=== PATIENT | male | born 1955 | race Caucasian/White ===

== ENCOUNTER 2020-01-09 12:51 | Emergency (ER) | payer MEDICARE, SELFPAY ==
[~2020-01-09] VITALS: Ht 170.2 cm; Wt 90.7 kg
--- NOTE | 2020-01-09 13:05 | NUR ---
Patient BIB [id number] for [facility] from home. Patient Alert but not verbal and cannot follow commands. Patient is able to open eyes spontaneously. Respiratory even and unlabored, no cough or sob noted. Patient's abdominal girth enlarged, and purple discolored skin noted on lower abdomen and on scrotom area. Patient connected to the monitor, patient in bed at lowest position, sr [id number]. Fall and safety precautions implemented per protocol.
--- NOTE | 2020-01-09 13:10 | NUR ---
Patient is able to move all extremities.
--- NOTE | 2020-01-09 13:10 | NUR ---
Patient GCS is 12 upon assessment.
--- NOTE | 2020-01-09 13:14 | NUR ---
Patient transported to CT in stable condition.
--- NOTE | 2020-01-09 13:27 | NUR ---
Patient is back from CT in stable condition.
[2020-01-09 13:29] LABS: BASOPHILS # (AUTO) 0.1 K/uL (0.0-8.0); BASOPHILS % (AUTO) 0.5 % (0.0-2.0); EOSINOPHILS # (AUTO) 0.1 K/uL (0.0-0.7); EOSINOPHILS % (AUTO) 0.7 % (0.0-7.0); LYMPHOCYTES # (AUTO) 0.6 K/uL (20.0-40.0); LYMPHOCYTES % (AUTO) 5.1 % (20.5-51.5); MEAN CORPUSCULAR HEMOGLOBIN 36.7 uug (23.8-33.4); MEAN CORPUSCULAR HGB CONC 33 g/dL (32.5-36.3); MEAN CORPUSCULAR VOLUME 110.4 fL (73.0-96.2); MONOCYTES # (AUTO) 1.1 K/uL (2.0-10.0); MONOCYTES % (AUTO) 9.7 % (0.0-11.0); NEUTROPHILS # (AUTO) 9.4 K/uL (1.8-8.9); PLATELET COUNT (AUTO) 64 K/uL (152-348); RED BLOOD CELL COUNT(AUTO) 3.26 MIL/uL (4.06-5.63); WHITE BLOOD COUNT (AUTO) 11.2 K/uL (3.6-10.2)
[2020-01-09] MEDS ORDERED: levETIRAcetam IV 1,000 MG in IV DEXTROSE 5% 100 ML IV ONE (13:30)
[2020-01-09 13:35] LABS: CARBON DIOXIDE 25 mmol/L (21-32); CHLORIDE 101 mmol/L (98-107); CREATININE 0.7 mg/dL (0.6-1.3); GLUCOSE 174 mg/dL (74-106); POTASSIUM 4.2 mmol/L (3.5-5.1); UREA NITROGEN, BLOOD 10 mg/dL (7-18)
[2020-01-09 13:40] LABS: ALANINE AMINOTRANSFERASE 30 U/L (16-63); ALKALINE PHOSPHATASE 114 U/L (50-136); ASPARTATE AMINOTRANSFERASE 65 U/L (15-37); BILIRUBIN,TOTAL 13.1 mg/dL (0.2-1.0); TOTAL PROTEIN, SERUM 5.7 g/dL (6.4-8.2)
[2020-01-09 13:41] LABS: *BLOOD, URINE NEGATIVE (NEGATIVE); *CLARITY,URINE CLEAR (CLEAR); *COLOR,URINE AMBER (YELLOW); *KETONES,URINE TRACE (NEGATIVE); *UROBILINOGEN,URINE >=8.0 E.U./dl (NORMAL); LEUKOCYTE ESTERASE ,URINE NEGATIVE (NEGATIVE); NITRITE, URINE POSITIVE (NEGATIVE); UGLUCOSE TRACE (NEGATIVE)
[2020-01-09 13:42] LABS: *BILIRUBIN,URIN 3+ (NEGATIVE); ACETAMINOPHEN < 2.0 ug/mL (10-30); ETHANOL < 3 MG/DL (0-0)
--- NOTE | 2020-01-09 13:44 | NUR ---
Dr. Coleman, neurosurgery has been called. Awaiting call back.
[2020-01-09 13:54] LABS: THYROID STIMULATING HORMONE 1.556 mIU/mL (0.358-3.740)
--- NOTE | 2020-01-09 13:59 | NUR ---
Keppra 1G infusion complete at 1359, patient tolerated well
[2020-01-09 14:00] LABS: BACTERIA,URINE FEW /HPF (NONE SEEN); RBC,URINE 0-3 /HPF (0-3); SQUAMOUS EPITHELIAL CELL,UR FEW /HPF (NONE SEEN)
[2020-01-09 14:01] LABS: *AMPHETAMINE, URINE NEGATIVE (NEGATIVE); *BARBITURATE, URINE NEGATIVE (NEGATIVE); *CANNABINOID, URINE NEGATIVE (NEGATIVE); *COCCAINE, URINE NEGATIVE (NEGATIVE); *OPIATE, URINE NEGATIVE (NEGATIVE); *PHENCYCLIDINE SCREEN,URINE NEGATIVE (NEGATIVE); MUCUS,URINE FEW /LPF (0-FEW); URINE AMORPHOUS URATE FEW /HPF
--- NOTE | 2020-01-09 14:02 | NUR ---
Patient in bed, HOB elevated. Vital signs are stable. No new acute changes.
[2020-01-09 14:39] LABS: BAND % (MANUAL) 6 % (0-10); LYMPHOCYTES % (MANUAL) 3 % (20-40); MONOCYTES % (MANUAL) 7 % (2-10); NEUTROPHILS % (MANUAL) 84 % (42-75)
--- NOTE | 2020-01-09 14:49 | NUR ---
Assisted ERMD with examination of patient.
[2020-01-09] MEDS ORDERED: PANTOPRAZOLE SODIUM IV 80 MG in IV DEXTROSE 5% 100 ML IV ONE (15:00)
[2020-01-09] MEDS ORDERED: ONDANSETRON 4 MG/2 ML VIAL IV ONE (15:00)
[2020-01-09] MEDS ORDERED: PANTOPRAZOLE SODIUM 40 MG VIAL ONE (15:11)
[2020-01-09] MEDS ORDERED: ONDANSETRON 4 MG/2 ML VIAL ONE (15:11)
--- NOTE | 2020-01-09 15:30 | NUR ---
Protonix 80mg IV infusion complete at 1530, patient tolerated well.
--- NOTE | 2020-01-09 15:30 | NUR ---
Report given to MELONY Galeana at [facility]
--- NOTE | 2020-01-09 15:34 | NUR ---
[id number] is here for patient transport.
== END 2020-01-09 15:43 | disposition short-term general hospital (02) ==
LOC: ER 12:51
DX: I61.9 Nontraumatic intracerebral hemorrhage, unspecified (principal); R41.89 Other symptoms and signs involving cognitive functions and awareness; R40.2422 Glasgow coma scale score 9-12, at arrival to emergency department; G93.6 Cerebral edema; D72.829 Elevated white blood cell count, unspecified; I62.01 Nontraumatic acute subdural hemorrhage; G93.41 Metabolic encephalopathy; D68.9 Coagulation defect, unspecified; D69.6 Thrombocytopenia, unspecified; E87.2 Acidosis; E80.6 Other disorders of bilirubin metabolism; E72.20 Disorder of urea cycle metabolism, unspecified; F10.20 Alcohol dependence, uncomplicated; Y90.0 Blood alcohol level of less than 20 mg/100 ml; Z87.19 Personal history of other diseases of the digestive system
CPT/HCPCS: 36415; 70450; 71045; 80048; 80076; 80307 ×2; 80329; 81001; 82140; 82962; 83605 ×2; 84443; 84484; 85025; 85730; 87040 ×2; 87086; 93005; 96365; 96366; 96375; 99291; C9113; G0480; J1953; J2405; J7060 ×2; U0003; 70030-TC; A4663; C1758